=== PATIENT | male | born 1970 | race American Indian/Alaskan Native ===

== ENCOUNTER 2020-06-19 01:42 | Emergency (ER) | payer SELFPAY ==
[2020-06-19 02:41] VITALS: BP 163/96
[2020-06-19] MEDS ORDERED: IBUPROFEN ORAL LIQD 100 MG/5 ML ORAL.LIQD PO ONE (03:56)
--- NOTE | 2020-06-19 03:57 | Emergency Department Report ---
ED ENT HPI - General Chief complaint: Earache Stated complaint: TOOTHACHE Time Seen by Provider: 06/19/20 03:55 Source: patient Mode of arrival: Stretcher Limitations: No Limitations - History of Present Illness Initial comments: 49-year-old male complaining of left earache and sore throat x3 days. He denies cough runny nose fever chills no nausea no vomiting no loss of taste or smell. His past medical history consist of hypertension. He is in no acute distress -: days(s) Location: L ear, throat Severity scale (0 -10): 5 (3) Quality: aching, sharp Consistency: constant Improves with: none Worsens with: none Associated Symptoms: pain with swallowing, sore throat. denies: fever, cough, gum swelling, toothache, tinnitus, hearing loss, discharge from ear, rhinorrhea - Related Data Previous Rx's Medication Instructions Recorded Last Taken Type Famotidine [Pepcid] 20 mg PO BID #7 tablet 11/30/14 Unknown Rx Prednisone [predniSONE (Chucky) ER 5 mg PO .TAPER #12 tablet. 11/30/14 Unknown Rx TAB] amLODIPine [Norvasc] 5 mg PO DAILY #30 tab 11/30/14 Unknown Rx diphenhydrAMINE [Benadryl] 25 mg PO Q6HR PRN #10 capsule 11/30/14 Unknown Rx Amoxicillin [Trimox CAP] 1,000 mg PO DAILY #10 capsule 06/19/20 Unknown Rx Ibuprofen [Motrin] 600 mg PO Q8H PRN #21 tablet 06/19/20 Unknown Rx Allergies Allergy/AdvReac Type Severity Reaction Status Date / Time No Known Allergies Allergy Verified 09/17/14 16:32 ED Dental HPI - General Chief complaint: Earache Stated complaint: TOOTHACHE Time Seen by Provider: 06/19/20 03:55 Source: patient Mode of arrival: Stretcher Limitations: No Limitations - Related Data Previous Rx's Medication Instructions Recorded Last Taken Type Famotidine [Pepcid] 20 mg PO BID #7 tablet 11/30/14 Unknown Rx Prednisone [predniSONE (Chucky) ER 5 mg PO .TAPER #12 tablet. 11/30/14 Unknown Rx TAB] amLODIPine [Norvasc] 5 mg PO DAILY #30 tab 11/30/14 Unknown Rx diphenhydrAMINE [Benadryl] 25 mg PO Q6HR PRN #10 capsule 11/30/14 Unknown Rx Amoxicillin [Trimox CAP] 1,000 mg PO DAILY #10 capsule 06/19/20 Unknown Rx Ibuprofen [Motrin] 600 mg PO Q8H PRN #21 tablet 06/19/20 Unknown Rx Allergies Allergy/AdvReac Type Severity Reaction Status Date / Time No Known Allergies Allergy Verified 09/17/14 16:32 ED Review of Systems ROS: Stated complaint: TOOTHACHE Other details as noted in HPI Comment: All other systems reviewed and negative Constitutional: no symptoms reported. denies: chills, fever, malaise Eyes: denies: eye pain, eye discharge ENT: ear pain, throat pain Respiratory: denies: cough, shortness of breath, SOB with exertion Cardiovascular: denies: chest pain, palpitations, dyspnea on exertion Gastrointestinal: denies: abdominal pain, diarrhea, constipation Musculoskeletal: denies: back pain, joint swelling Skin: denies: lesions Neurological: denies: headache, weakness, numbness, paresthesias ED Past Medical Hx - Past Medical History Previous Medical History?: Yes Hx Hypertension: Yes Hx Congestive Heart Failure: No Hx Diabetes: No Hx Asthma: No Hx COPD: No - Surgical History Past Surgical History?: No - Social History Smoking Status: Current Every Day Smoker Substance Use Type: None - Medications Home Medications: Home Medications Medication Instructions Recorded Confirmed Last Taken Type Famotidine [Pepcid] 20 mg PO BID #7 tablet 11/30/14 Unknown Rx Prednisone [predniSONE (Chucky) ER 5 mg PO .TAPER #12 tablet.dr 11/30/14 Unknown Rx TAB] amLODIPine [Norvasc] 5 mg PO DAILY #30 tab 11/30/14 Unknown Rx diphenhydrAMINE [Benadryl] 25 mg PO Q6HR PRN #10 capsule 11/30/14 Unknown Rx Amoxicillin [Trimox CAP] 1,000 mg PO DAILY #10 capsule 06/19/20 Unknown Rx Ibuprofen [Motrin] 600 mg PO Q8H PRN #21 tablet 06/19/20 Unknown Rx ED Physical Exam - General Limitations: No Limitations General appearance: alert, in no apparent distress - Head Head exam: Present: atraumatic - Eye Eye exam: Present: normal appearance - ENT ENT exam: Present: mucous membranes moist, TM's normal bilaterally, other (Posterior pharynx erythematous, uvula ulcerated) - Neck Neck exam: Present: full ROM. Absent: lymphadenopathy - Respiratory Respiratory exam: Present: normal lung sounds bilaterally. Absent: respiratory distress, rhonchi - Cardiovascular Cardiovascular Exam: Present: regular rate, normal heart sounds - Neurological Exam Neurological exam: Present: alert, oriented X3 - Psychiatric Psychiatric exam: Present: normal affect - Skin Skin exam: Present: warm, dry, intact, normal color. Absent: rash ED Course Vital Signs 06/19/20 02:33 Temperature 98.8 F Pulse Rate 56 L Respiratory 14 Rate Blood Pressure 163/96 O2 Sat by Pulse 97 Oximetry ED Medical Decision Making - Medical Decision Making 49-year-old male with a past medical history of hypertension with a 3-day complaint of sore throat and left ear pain. Rapid strep returned positive for group A strep. Patient is treated with amoxicillin 1000 mg every 24 hours x10 days warm salt water gargles he is instructed to change his toothbrush patient in no distress no drooling able to swallow Critical Care Time: No Critical care attestation.: If time is entered above; I have spent that time in minutes in the direct care of this critically ill patient, excluding procedure time. ED Disposition Clinical Impression: Group A streptococcal infection Disposition: DC- TO HOME OR SELFCARE Is pt being admited?: No Does the pt Need Aspirin: No Condition: Stable Instructions: Strep Throat, Adult, Antibiotic Medicine, Adult Additional Instructions: Warm salt water gargles at least 3 times a day. Take antibiotic until it is completely gone. Change your toothbrush 1 day after starting antibiotics. Take Motrin 1 tablet every 6 hours as needed for pain or sore throat. Drink plenty fluids at least 6 to 8 glasses of water daily follow-up with your doctor in 3 to 5 days Prescriptions: Ibuprofen [Motrin] 600 mg PO Q8H PRN #21 tablet PRN Reason: Pain Amoxicillin [Trimox CAP] 1,000 mg PO DAILY #10 capsule Referrals: PRIMARY CARE, [Primary Care Provider] - 3-5 Days Time of Disposition: 04:45
== END 2020-06-19 05:06 | disposition home or self-care (01) ==
LOC: ED 01:42
DX: H92.02 Otalgia, left ear (principal); J02.9 Acute pharyngitis, unspecified; B95.0 Streptococcus, group A, as the cause of diseases classified elsewhere; I10 Essential (primary) hypertension; F17.200 Nicotine dependence, unspecified, uncomplicated; Z79.899 Other long term (current) drug therapy
CPT/HCPCS: 87430; 99283